=== PATIENT | female | born 1990 | race Two or more races ===

== ENCOUNTER 2018-03-28 19:41 | Emergency (ER) | payer SELFPAY ==
[~2018-03-28] VITALS: Ht 160 cm; Wt 68.0 kg
[2018-03-28] MEDS ORDERED: IV NORMAL SALINE 1000ML BAG 1,000 ML IV SCH (20:20)
--- NOTE | 2018-03-28 20:24 | PHYS DOC ---
Past Medical History Past Medical History: No Pertinent History Past Surgical History: No Surgical History Smoking: Cigarettes (The patient is a nonsmoker.) Alcohol Use: None Drug Use: None Adult General Chief Complaint Chief Complaint: ABDOMINAL PAIN HPI HPI Patient is a 27-year-old female who presents to the emergency room for evaluation. She states that for the past week, she has had some suprapubic discomfort, with some discomfort in her right flank area as well. She admits to urinary frequency, and some pressure with urination. She has had some urinary hesitancy as well. She had a small amount of vaginal bleeding about a week ago but none normal menstrual period. Her LMP was around February 14. She took a test about 2 weeks ago, which was negative. A bedside test in the emergency department is negative as well. She has not had any nausea, vomiting, or diarrhea, or vaginal discharge. She has not had any fevers or chills. There are no alleviating or exacerbating factors to her symptoms. Review of Systems Review of Systems Constitutional: Denies fever or chills [] Eyes: Denies change in visual acuity, redness, or eye pain [] HENT: Denies nasal congestion or sore throat [] Respiratory: Denies cough or shortness of breath [] Cardiovascular: The patient denies any shortness of breath, chest pain, palpitations, or orthopnea [] GI: No additional information not addressed in HPI [] : No additional information not addressed in HPI [] Musculoskeletal: Denies back pain or joint pain [] Integument: Denies rash or skin lesions [] Neurologic: Denies headache, focal weakness or sensory changes [] Endocrine: Denies polyuria or polydipsia [] All other systems were reviewed and found to be within normal limits, except as documented in this note. Current Medications Current Medications Current Medications Medications (Trade) Dose Ordered Sig/Kranthi Start Time Stop Time Status Last Admin Dose Admin Acetaminophen (Tylenol) 1,000 mg 1X ONCE 03/28/18 20:45 03/28/18 20:46 DC 03/28/18 21:10 1,000 MG Info (CONTRAST GIVEN -- Rx MONITORING) 1 each PRN DAILY PRN 03/28/18 21:30 03/30/18 21:29 Iohexol (Omnipaque 300 Mg/ml) 75 ml 1X ONCE 03/28/18 21:15 03/28/18 21:16 DC 03/28/18 21:15 75 ML Sodium Chloride 1,000 ml @ 1,000 mls/hr Q1H 03/28/18 20:20 03/28/18 21:19 DC 03/28/18 20:28 1,000 MLS/HR Allergies Allergies Allergies Coded Allergies Type Severity Reaction Last Updated Verified No Known Drug Allergies 03/28/18 No Physical Exam Physical Exam PHYSICAL EXAM: CONSTITUTIONAL: Well developed, well nourished HEAD: normocephalic, atraumatic EENT: PERRL, EOMI. Conjunctivae normal color, sclerae non-icteric; moist mucous membranes. NECK: Supple, non-tender; no meningismus. LUNGS: Lungs CTA, breathing even and unlabored. Normal air movement. HEART: Regular rate and rhythm, no murmur CHEST: No deformity; non-tender ABDOMEN: The abdomen is soft, there is mild tenderness to palpation in the suprapubic area, the remainder of the abdomen is soft and nontender, without rebound or guarding, normal bowel sounds are present, the right lower quadrant is nontender, no masses or bruits. EXTREM: Normal ROM; no deformity, no calf tenderness. Normal pulses palpable in all extremities. There is no pedal edema. SKIN: No rash; no diaphoresis NEURO: Alert; normal speech and cognition; CN's grossly intact; strength grossly intact without focal deficit. BACK: No CVA TTP. PELVIC EXAM: Normal external genitalia. There is no significant amount of vaginal discharge. The cervix appears normal. There is no significant cervical motion tenderness, there is mild diffuse suprapubic tenderness to palpation without focal tenderness or mass. Exam was performed in the presence of the patient's nurse, Zandra. Current Patient Data Vital Signs Vital Signs Date Time Temp Pulse Resp B/P (MAP) Pulse Ox O2 Delivery O2 Flow Rate FiO2 03/28/18 19:59 98.5 84 23 124/60 (81) 99 Room Air 98.5 Lab Values Laboratory Tests Test 03/28/18 19:58 03/28/18 20:00 03/28/18 20:05 Urine Collection Type Void Urine Color Yellow Urine Clarity Clear Urine pH 6.5 Urine Specific [place] 1.010 Urine Protein Negative mg/dL (NEG-TRACE) Urine Glucose (UA) Negative mg/dL (NEG) Urine Ketones (Stick) Negative mg/dL (NEG) Urine Blood Negative (NEG) Urine Nitrite Negative (NEG) Urine Bilirubin Negative (NEG) Urine Urobilinogen Dipstick 0.2 mg/dL (0.2 mg/dL) Urine Leukocyte Esterase Negative (NEG) Urine RBC 0 /HPF (0-2) Urine WBC 0 /HPF (0-4) Urine Squamous Epithelial Cells Few /LPF Urine Bacteria Few /HPF (0-FEW) POC Urine HCG, Qualitative Hcg negative (Negative) White Blood Count 9.4 x10^3/uL (4.0-11.0) Red Blood Count 4.20 x10^6/uL (3.50-5.40) Hemoglobin 13.1 g/dL (12.0-15.5) Hematocrit 37.9 % (36.0-47.0) Mean Corpuscular Volume 90 fL (79-100) Mean Corpuscular Hemoglobin 31 pg (25-35) Mean Corpuscular Hemoglobin Concent 35 g/dL (31-37) Red Cell Distribution Width 12.4 % (11.5-14.5) Platelet Count 285 x10^3/uL (140-400) Neutrophils (%) (Auto) 55 % (31-73) Lymphocytes (%) (Auto) 36 % (24-48) Monocytes (%) (Auto) 6 % (0-9) Eosinophils (%) (Auto) 3 % (0-3) Basophils (%) (Auto) 1 % (0-3) Neutrophils # (Auto) 5.2 x10^3uL (1.8-7.7) Lymphocytes # (Auto) 3.4 x10^3/uL (1.0-4.8) Monocytes # (Auto) 0.6 x10^3/uL (0.0-1.1) Eosinophils # (Auto) 0.2 x10^3/uL (0.0-0.7) Basophils # (Auto) 0.1 x10^3/uL (0.0-0.2) Sodium Level 138 mmol/L (136-145) Potassium Level 3.3 mmol/L (3.5-5.1) L Chloride Level 100 mmol/L (98-107) Carbon Dioxide Level 27 mmol/L (21-32) Anion Gap 11 (6-14) Blood Urea Nitrogen 12 mg/dL (7-20) Creatinine 0.7 mg/dL (0.6-1.0) Estimated GFR (Cockcroft-Gault) 99.6 BUN/Creatinine Ratio 17 (6-20) Glucose Level 92 mg/dL (70-99) Calcium Level 9.1 mg/dL (8.5-10.1) Total Bilirubin 0.2 mg/dL (0.2-1.0) Aspartate Amino Transferase (AST) 14 U/L (15-37) L Alanine Aminotransferase (ALT) 29 U/L (14-59) Alkaline Phosphatase 61 U/L (46-116) Total Protein 8.4 g/dL (6.4-8.2) H Albumin 3.7 g/dL (3.4-5.0) Albumin/Globulin Ratio 0.8 (1.0-1.7) L Lipase 113 U/L (73-393) Laboratory Tests 03/28/18 20:05 Laboratory Tests 03/28/18 20:05 Microbiology 03/28/18 Wet Prep - Final, Complete WET PREP Final YEAST NONE SEEN TRICHOMONAS NONE SEEN CLUE CELLS NONE SEEN EKG EKG [] Radiology/Procedures Radiology/Procedures PROCEDURE: CT ABD PELV W/ IV CONTRST ONLY PQRS Compliance Statement: One or more of the following individualized dose reduction techniques were utilized for this examination: 1. Automated exposure control 2. Adjustment of the mA and/or kV according to patient size 3. Use of iterative reconstruction technique CT ABD PELV W/ IV CONTRST ONLY Clinical Indication: low abd pain, Comparison: None. Technique: Helical CT imaging of the abdomen and pelvis is performed after 75 cc of Omnipaque 300 IV contrast. Oral contrast not given. Findings: There is minimal dependent atelectasis in the lower lobes. Cardiac size normal. There is moderate fatty infiltration of the liver. Focal fatty sparing along the gallbladder fossa. There is an enhancing or relatively hyperdense mass in the right hepatic lobe just lateral to the intrahepatic IVC. The mass measures approximately 3.6 x 3.1 cm. The spleen, gallbladder, pancreas, adrenal glands, abdominal aorta, and kidneys are normal. Stomach unremarkable. There is no dilated small bowel. No colon wall thickening. The appendix is normal. No abdominal adenopathy or free fluid. Urinary bladder is normal. Uterus and ovaries unremarkable. No pelvic free fluid. No acute bone abnormality. IMPRESSION: 1. No acute abdominal or pelvic abnormality. 2. Fatty infiltration of the liver. 3. There is a 3.6 cm enhancing or relatively hyperdense mass in the right hepatic lobe. Recommend outpatient MR abdomen with and without contrast for further evaluation.[] Course & Med Decision Making Course & Med Decision Making Pertinent Labs and Imaging studies reviewed. (See chart for details) [The patient's condition remains stable. I discussed test results with the patient, the need for outpatient imaging, per radiologist's recommendations, the need for DIPLOMATIC COURIER follow-up and return precautions.] Dragon Disclaimer Dragon Disclaimer This electronic medical record was generated, in whole or in part, using a voice recognition dictation system. Departure Departure Impression: Primary Impression: Abdominal pain Additional Impression: Pelvic pain in female Disposition: 01 HOME, SELF-CARE Condition: STABLE Referrals: NAHEED IBARRA Jr, MD Patient Instructions: Abdominal Pain, Pelvic Pain, Female Additional Instructions: the CT scan of the abdomen that was done today did demonstrate an abnormality on her liver that warrants further outpatient evaluation with MRI, to ensure there is no that this lesion is benign, and no further treatment is necessary. Please contact the primary care provider of your choice to schedule further outpatient follow-up. Scripts Diclofenac Sodium (DICLOFENAC SODIUM) 50 Mg Tablet.dr 1 TAB PO BID, #20 TAB 0 Refills Prov: NIKITA OBREGON MD 03/28/18 Problem Qualifiers NIKITA OBREGON MD Mar 28, 2018 20:24
[2018-03-28 20:29] LABS: BILIRUBIN,URINE NEGATIVE (NEG); CLARITY,URINE CLEAR; COLOR,URINE YELLOW; NITRITE,URINE NEGATIVE (NEG); PH,URINE 6.5; PROTEIN,URINE NEGATIVE (NEG-TRACE); UROBILINOGEN,URINE 0.2 mg/dL (0.2 mg/dL)
[2018-03-28 20:30] LABS: BASO # 0.1 x10^3/uL (0.0-0.2); BASO % 1 % (0-3); EOS # 0.2 x10^3/uL (0.0-0.7); EOS % 3 % (0-3); HEMATOCRIT 37.9 % (36.0-47.0); HEMOGLOBIN 13.1 g/dL (12.0-15.5); LYMPH # 3.4 x10^3/uL (1.0-4.8); LYMPH % 36 % (24-48); MEAN CORPUSCULAR HEMOGLOBIN 31 pg (25-35); MEAN CORPUSCULAR HGB CONC 35 g/dL (31-37); MEAN CORPUSCULAR VOLUME 90 fL (79-100); MONO # 0.6 x10^3/uL (0.0-1.1); MONO % 6 % (0-9); NEUT # 5.2 x10^3uL (1.8-7.7); NEUT % 55 % (31-73); PLATELET COUNT 285 x10^3/uL (140-400); RED CELL DISTRIBUTION WIDTH 12.4 % (11.5-14.5); WHITE BLOOD COUNT 9.4 x10^3/uL (4.0-11.0)
[2018-03-28 20:36] LABS: BACTERIA,URINE FEW /HPF (0-FEW); RBC,URINE 0 /HPF (0-2); SQUAMOUS EPITHELIAL CELL,UR FEW /LPF; WBC,URINE 0 /HPF (0-4)
[2018-03-28 20:41] LABS: CALCIUM 9.1 mg/dL (8.5-10.1); CREATININE 0.7 mg/dL (0.6-1.0); GFR 99.6; POTASSIUM 3.3 mmol/L (3.5-5.1)
[2018-03-28 20:45] LABS: ALBUMIN 3.7 g/dL (3.4-5.0); ALBUMIN/GLOBULIN RATIO 0.8 (1.0-1.7); TOTAL BILIRUBIN 0.2 mg/dL (0.2-1.0); TOTAL PROTEIN 8.4 g/dL (6.4-8.2)
[2018-03-28] MEDS ORDERED: ACETAMINOPHEN 500 MG TABLET PO ONE (20:45)
[2018-03-28] MEDS ORDERED: IOHEXOL 300 MG/ML 100ML VIAL. IV ONE (21:15)
[2018-03-28] MEDS ORDERED: CONTRAST GIVEN. MC PRN (21:30)
--- NOTE | 2018-03-28 22:09 | RAD ---
PQRS Compliance Statement: One or more of the following individualized dose reduction techniques were utilized for this examination: 1. Automated exposure control 2. Adjustment of the mA and/or kV according to patient size 3. Use of iterative reconstruction technique CT ABD PELV W/ IV CONTRST ONLY Clinical Indication: low abd pain, Comparison: None. Technique: Helical CT imaging of the abdomen and pelvis is performed after 75 cc of Omnipaque 300 IV contrast. Oral contrast not given. Findings: There is minimal dependent atelectasis in the lower lobes. Cardiac size normal. There is moderate fatty infiltration of the liver. Focal fatty sparing along the gallbladder fossa. There is an enhancing or relatively hyperdense mass in the right hepatic lobe just lateral to the intrahepatic IVC. The mass measures approximately 3.6 x 3.1 cm. The spleen, gallbladder, pancreas, adrenal glands, abdominal aorta, and kidneys are normal. Stomach unremarkable. There is no dilated small bowel. No colon wall thickening. The appendix is normal. No abdominal adenopathy or free fluid. Urinary bladder is normal. Uterus and ovaries unremarkable. No pelvic free fluid. No acute bone abnormality. IMPRESSION: 1. No acute abdominal or pelvic abnormality. 2. Fatty infiltration of the liver. 3. There is a 3.6 cm enhancing or relatively hyperdense mass in the right hepatic lobe. Recommend outpatient MR abdomen with and without contrast for further evaluation. Electronically signed by: Ihsan Graysno MD (03/28/2018 10:05 PM) [facility]
[2018-03-28] MEDS ORDERED: DICL50TA4 PO (22:22)
[2018-03-28 22:25] VITALS: BP 119/57
[2018-04-01 13:19] LABS: GC PROBE Negative (Negative)
== END 2018-03-28 22:45 | disposition home or self-care (01) ==
LOC: ER 19:41
DX: R10.84 Generalized abdominal pain (principal); R10.2 Pelvic and perineal pain; N93.9 Abnormal uterine and vaginal bleeding, unspecified; R35.0 Frequency of micturition; K76.0 Fatty (change of) liver, not elsewhere classified
CPT/HCPCS: 36415; 74177; 80053; 81001; 81025; 83690; 85025; 87491; 87591; 99284; J7030; Q0111; Q9967; 96360

== ENCOUNTER 2020-10-11 16:34 | Emergency (ER) | payer SELFPAY ==
[~2020-10-11] VITALS: Ht 160 cm; Wt 90.9 kg
[~2020-10-11 16:34] MED LIST: DICL50TA4 PO
[2020-10-11 18:42] LABS: BILIRUBIN,URINE NEGATIVE (NEG); CLARITY,URINE CLEAR; COLOR,URINE YELLOW; NITRITE,URINE NEGATIVE (NEG); PROTEIN,URINE NEGATIVE (NEG-TRACE); UROBILINOGEN,URINE 0.2 mg/dL (0.2 mg/dL)
[2020-10-11 18:45] LABS: U PREG PATIENT NEGATIVE (NEG)
--- NOTE | 2020-10-11 18:45 | PHYS DOC ---
Past Medical History Past Medical History: No Pertinent History Past Surgical History: No Surgical History Smoking Status: Never Smoker Alcohol Use: None Drug Use: None General Adult EDM: Chief Complaint: PELVIC PAIN HPI: HPI: Patient is a 30 year old female with no past medical or surgical history presents with a chief complaint of abdominal pain. Patient states abdominal pain has been ongoing for 2 days. Patient's pain is been constant since onset. Patient's pain is primarily located periumbilical and radiates diffusely to all quadrants. Patient had nausea and vomiting this a.m. She denies any associated urinary complaints and or diarrhea vaginal discharge or vaginal bleeding.. Patient has an IUD in place. Review of Systems: Review of Systems: Review of systems: Constitutional symptoms- No fever, no chills. Eyes- No Discharge, No Visual Loss Respiratory symptoms- No shortness of breath, No wheezing, No Dyspnea on Exertion Cardiovascular Systems; No chest pain, No Palpitations, No syncope Gastrointestinal symptoms: Positive abdominal pain, Positive nausea, Positive vomiting no diarrhea. Genitourinary symptoms: No dysuria. Musculoskeletal symptoms: No back pain No extremity pain. NEUROLOGICAL Symptoms: No headache, no generalized weakness; No focal Weakness Skin: No rash. Heart Score: C/O Chest Pain: N/A Risk Factors: Risk Factors: DM, Current or recent (<one month) smoker, HTN, HLP, family history of CAD, obesity. Risk Scores: Score 0 - 3: 2.5% MACE over next 6 weeks - Discharge Home Score 4 - 6: 20.3% MACE over next 6 weeks - Admit for Clinical Observation Score 7 - 10: 72.7% MACE over next 6 weeks - Early Invasive Strategies Current Medications: Current Medications Medications (Trade) Dose Ordered Sig/[facility] Start Time Stop Time Status Last Admin Dose Admin Tramadol HCl (Ultram) 50 mg 1X ONCE 10/11/20 18:45 10/11/20 18:46 UNV Allergies: Allergies: Allergies Coded Allergies Type Severity Reaction Last Updated Verified No Known Drug Allergies 03/28/18 No Physical Exam: PE: General: alert, no acute distress. Skin: warm, dry and intact. HENT: bilateral external ears normal, oropharynx moist, nose normal. Head:: Normocephalic, atraumatic. Neck: Trachea midline. Eyes: EOMI, Normal conjunctiva, No drainage CARDIOVASCULAR: Regular rate and rhythm RESPIRATORY: No respiratory distress Back: Full range of motion. Skin: Warm, dry, no erythema, no rash. MUSCULOSKELETAL: Full range of motion of bilateral upper and lower extremities. GASTROINTESTINAL: Abdomen soft without rebound or guarding. NEUROLOGICAL: Alert and noted to person, place and time. No neurological deficits observed Psychiatric: Cooperative. Normal judgment Current Patient Data: Labs: Laboratory Tests Test 10/11/20 18:32 POC Urine HCG, Qualitative Hcg negative (Negative) EKG: EKG: [] Radiology/Procedures: Radiology/Procedures: [] Impression: PQRS Compliance Statement: One or more of the following individualized dose reduction techniques were utilized for this examination: 1. Automated exposure control 2. Adjustment of the mA and/or kV according to patient size 3. Use of iterative reconstruction technique CT abdomen/pelvis with contrast 10/11/2020 8:31 PM INDICATION: Abdominal pain COMPARISON: CT abdomen/pelvis 03/28/2018 TECHNIQUE: Multiple axial CT images of the abdomen and pelvis were obtained after the intravenous administration of 75 mL Isovue-370. Coronal and sagittal reformats are provided. FINDINGS: Lung bases are clear. Heart size within normal limits. Right hepatic lobe measures 22.3 cm along the right mid clavicular line. Diffuse hypoattenuation the hepatic parenchyma suggestive of hepatic steatosis. Focal fatty sparing identified along the gallbladder fossa. There is a rounded area of hyperattenuation identified within the inferior right hepatic lobe measuring 8 mm (series 3, image 31). Spleen, pancreas, adrenal glands and gallbladder are normal in appearance. The abdominal aorta is normal in course and caliber. There are no pathologically enlarged lymph nodes in the abdomen and pelvis. There is no abdominal free fluid. There is no free intraperitoneal air. Small and large bowel are normal in caliber. There is no evidence for bowel obstruction. There are no pericolonic inflammatory changes. A normal, nondilated appendix is visualized without adjacent inflammatory changes. The kidneys enhance symme trically. There is no suspicious renal mass. There is no hydronephrosis. There are no suspected calculi within the kidneys, ureters or urinary bladder. Uterus is normal in appearance. IUD is present. Limited evaluation of configuration by CT. Urinary bladder within normal limits in degree of distention. Follicular changes are identified within the adnexa. No suspicious osseous abnormality is identified. IMPRESSION: Hepatomegaly with diffuse hepatic steatosis. Focal high attenuation lesion in inferior right hepatic lobe measures 8 mm (series 3, image 31). This finding is indeterminate due to the background of hepatic steatosis. Consideration may be given for focal fatty sparing. This finding appears present on prior examination from 03/28/2018 and presumed benign. Cyst, hemangioma or focal fatty sparing could have this appearance. Electronically signed by: Yina Adams MD (10/11/2020 9:00 PM) [facility] Course & Med Decision Making: Course & Med Decision Making Pertinent Labs and Imaging studies reviewed. (See chart for details) [] Patient was evaluated for chief complaint. Work-up consisted of laboratory analysis radiologic imaging. Results reviewed and discussed with patient. Patient labs within normal limits CT imaging no acute abnormalities. Dragon Disclaimer: Dragon Disclaimer: This electronic medical record was generated, in whole or in part, using a voice recognition dictation system. Departure Departure Impression: Primary Impression: Abdominal pain Disposition: HOME / SELF CARE / HOMELESS Condition: STABLE Referrals: NO PCP (PCP) Patient Instructions: Abdominal Pain Scripts Tramadol Hcl (ULTRAM) 50 Mg Tablet 1 TAB PO PRN Q6HRS PRN for pain MDD 4 Tablet(s) for 7 Days, #28 TAB 0 Refills Prov: PHAM ALCARAZ DO 10/11/20 PHAM ALCARAZ DO Oct 11, 2020 18:44
[2020-10-11 18:49] LABS: BACTERIA,URINE FEW /HPF (0-FEW); RBC,URINE 0 /HPF (0-2); WBC,URINE 0 /HPF (0-4)
[2020-10-11] MEDS ORDERED: IOHEXOL 300 MG/ML 100ML VIAL. IV ONE (19:00)
[2020-10-11] MEDS ORDERED: traMADol 50 MG TABLET PO ONE (19:15)
[2020-10-11] MEDS ORDERED: KETOROLAC 30 MG/ML VIAL. IVP ONE (19:45)
[2020-10-11 20:08] LABS: BASO % 0 % (0-3); EOS # 0.2 x10^3/uL (0.0-0.7); EOS % 3 % (0-3); HEMATOCRIT 39.5 % (36.0-47.0); HEMOGLOBIN 13.3 g/dL (12.0-15.5); LYMPH # 3.8 x10^3/uL (1.0-4.8); LYMPH % 43 % (24-48); MEAN CORPUSCULAR HEMOGLOBIN 31 pg (25-35); MEAN CORPUSCULAR HGB CONC 34 g/dL (31-37); MEAN CORPUSCULAR VOLUME 90 fL (79-100); MONO # 0.4 x10^3/uL (0.0-1.1); MONO % 4 % (0-9); NEUT # 4.4 x10^3/uL (1.8-7.7); NEUT % 50 % (31-73); PLATELET COUNT 267 x10^3/uL (140-400); RED BLOOD COUNT 4.38 x10^6/uL (3.50-5.40); RED CELL DISTRIBUTION WIDTH 13.2 % (11.5-14.5); WHITE BLOOD COUNT 8.7 x10^3/uL (4.0-11.0)
[2020-10-11 20:22] LABS: CALCIUM 8.7 mg/dL (8.5-10.1); CREATININE 0.6 mg/dL (0.6-1.0); GFR 116.6
[2020-10-11 20:28] LABS: TOTAL BILIRUBIN 0.3 mg/dL (0.2-1.0)
--- NOTE | 2020-10-11 21:03 | RAD ---
PQRS Compliance Statement: One or more of the following individualized dose reduction techniques were utilized for this examinat ion: 1. Automated exposure control 2. Adjustment of the mA and/or kV according to patient size 3. Use of iterative reconstruction technique CT abdomen/pelvis with contrast 10/11/2020 8:31 PM INDICATION: Abdominal pain COMPARISON: CT abdomen/pelvis 03/28/2018 TECHNIQUE: Multiple axial CT images of the abdomen and pelvis were obtained after the intravenous adm inistration of 75 mL Isovue-370. Coronal and sagittal reformats are provided. FINDINGS: Lung bases are clear. Heart size within normal limits. Right hepatic lobe measures 22.3 cm along the right mid clavicular line. Diffuse hypoattenuation the hepatic parenchyma suggestive of hepatic steat osis. Focal fatty sparing identified along the gallbladder fossa. There is a rounded area of hyperatt enuation identified within the inferior right hepatic lobe measuring 8 mm (series 3, image 31). Splee n, pancreas, adrenal glands and gallbladder are normal in appearance. The abdominal aorta is normal i n course and caliber. There are no pathologically enlarged lymph nodes in the abdomen and pelvis. The re is no abdominal free fluid. There is no free intraperitoneal air. Small and large bowel are normal in caliber. There is no evidence for bowel obstruction. There are no pericolonic inflammatory change s. A normal, nondilated appendix is visualized without adjacent inflammatory changes. The kidneys enh ance symmetrically. There is no suspicious renal mass. There is no hydronephrosis. There are no suspe cted calculi within the kidneys, ureters or urinary bladder. Uterus is normal in appearance. IUD is p resent. Limited evaluation of configuration by CT. Urinary bladder within normal limits in degree of distention. Follicular changes are identified within the adnexa. No suspicious osseous abnormality is identified. IMPRESSION: Hepatomegaly with diffuse hepatic steatosis. Focal high attenuation lesion in inferior right hepatic lobe measures 8 mm (series 3, image 31). This finding is indeterminate due to the background of hepatic steatosis. Consideration may be given for focal fatty sparing. This finding appears present on prior examination from 03/28/2018 and presumed steve ign. Cyst, hemangioma or focal fatty sparing could have this appearance. Electronically signed by: Yina Adams MD (10/11/2020 9:00 PM) [facility]
[2020-10-11] MEDS ORDERED: TRAM-48 PO ×2 (21:09→21:10)
[2020-10-11 21:22] VITALS: BP 119/56
== END 2020-10-11 21:45 | disposition home or self-care (01) ==
LOC: ER 16:34
DX: R10.33 Periumbilical pain (principal); R11.2 Nausea with vomiting, unspecified
CPT/HCPCS: 36415; 74177; 80053; 81001; 81025; 83690; 85025; 96374; 99285; J1885; Q9967

== ENCOUNTER 2021-04-10 04:04 | Emergency (ER) | payer SELFPAY ==
[~2021-04-10] VITALS: Ht 152.4 cm; Wt 95.7 kg
[~2021-04-10 04:04] MED LIST changes: +TRAM-48 PO
[2021-04-10 04:59] LABS: BILIRUBIN,URINE NEGATIVE (NEG); CLARITY,URINE CLEAR; COLOR,URINE YELLOW; NITRITE,URINE NEGATIVE (NEG); PROTEIN,URINE 30 mg/dL (NEG-TRACE); UROBILINOGEN,URINE 0.2 mg/dL (0.2 mg/dL)
[2021-04-10 05:08] LABS: BACTERIA,URINE MODERATE /HPF (0-FEW); RBC,URINE 0 /HPF (0-2)
[2021-04-10] MEDS ORDERED: SULF1TAB24 PO (05:16)
--- NOTE | 2021-04-10 05:16 | PHYS DOC ---
Past Medical History Past Medical History: No Pertinent History Additional Past Medical Histor: FATTY LIVER Past Surgical History: Smoking Status: Never Smoker Alcohol Use: None Drug Use: None General Adult EDM: Chief Complaint: BACK PAIN - NO INJURY HPI: HPI: Patient is a 30 year old female who presents with 1 week of dysuria, suprapubic discomfort, and low back discomfort. No fevers, chills, nausea, vomiting. States that she is concerned she may be . States her LMP was 02/04/2021. States on March 09 she had a positive home test, but earlier this week had a negative test at the [facility]. No changes in bowel movements. No vaginal bleeding or discharge. Is in a monogamous relationship. Review of Systems: Review of Systems: Constitutional: Denies fever or chills. [] Eyes: Denies change in visual acuity. [] HENT: Denies nasal congestion or sore throat. [] Respiratory: Denies cough or shortness of breath. [] Cardiovascular: Denies chest pain or edema. [] GI: Denies abdominal pain, nausea, vomiting, bloody stools or diarrhea. [] : Reports dysuria, suprapubic discomfort, low back discomfort Musculoskeletal: Denies back pain or joint pain. [] Integument: Denies rash. [] Neurologic: Denies headache, focal weakness or sensory changes. [] Endocrine: Denies polyuria or polydipsia. [] Lymphatic: Denies swollen glands. [] Psychiatric: Denies depression or anxiety. [] Heart Score: C/O Chest Pain: No Allergies: Allergies: Allergies Coded Allergies Type Severity Reaction Last Updated Verified No Known Drug Allergies 03/28/18 No Physical Exam: PE: Constitutional: Well developed, well nourished, no acute distress, non-toxic appearance. [] HENT: Normocephalic, atraumatic[] Cardiovascular:Heart rate regular rhythm, no murmur [] Lungs & Thorax: Bilateral breath sounds clear to auscultation [] Abdomen: Obese abdomen. Soft, nontender. No masses. Skin: Warm, dry, no erythema, no rash. [] Back: No tenderness, no CVA tenderness. [] Extremities: No tenderness, no cyanosis, no clubbing, ROM intact, no edema. [] Neurologic: Alert and oriented X 3, normal motor function, normal sensory function, no focal deficits noted. [] Psychologic: Affect normal, judgement normal, mood normal. [] Current Patient Data: Labs: Laboratory Tests Test 04/10/21 04:35 04/10/21 04:43 Urine Collection Type Unknown Urine Color Yellow Urine Clarity Clear Urine pH 6.0 (<5.0-8.0) Urine Specific [place] 1.010 (1.000-1.030) Urine Protein 30 mg/dL (NEG-TRACE) Urine Glucose (UA) Negative mg/dL (NEG) Urine Ketones (Stick) Negative mg/dL (NEG) Urine Blood Trace (NEG) Urine Nitrite Negative (NEG) Urine Bilirubin Negative (NEG) Urine Urobilinogen Dipstick 0.2 mg/dL (0.2 mg/dL) Urine Leukocyte Esterase Small (NEG) Urine RBC 0 /HPF (0-2) Urine WBC 5-10 /HPF (0-4) Urine Squamous Epithelial Cells Many /LPF Urine Bacteria Moderate /HPF (0-FEW) Urine Mucus Slight /LPF POC Urine HCG, Qualitative Hcg negative (Negative) Vital Signs: Vital Signs Date Time Temp Pulse Resp B/P (MAP) Pulse Ox O2 Delivery O2 Flow Rate FiO2 04/10/21 04:55 98.0 82 18 118/61 (80) 98 Room Air 98.0 EKG: EKG: [] Radiology/Procedures: Radiology/Procedures: [] Course & Med Decision Making: Course & Med Decision Making Pertinent Labs and Imaging studies reviewed. (See chart for details) Patient a 30-year-old female who presents with dysuria, suprapubic discomfort, low back discomfort. On arrival is afebrile, with normal vital signs. No evidence of sepsis. She was concerned she may be , but urine test is negative here. UA is consistent with urinary tract infection. Will be sent for culture. Will place on p.o. Bactrim. Wojciech Disclaimer: Wojciech Disclaimer: This electronic medical record was generated, in whole or in part, using a voice recognition dictation system. Departure Departure Impression: Primary Impression: Urinary tract infection Disposition: HOME / SELF CARE / HOMELESS Condition: STABLE Referrals: NO PCP (PCP) Patient Instructions: Urinary Tract Infection Scripts Sulfamethoxazole/Trimethoprim (BACTRIM DS TABLET) 1 Each Tablet 1 TAB PO BID for infection for 7 Days, #14 TAB 0 Refills Prov: CHALO CALIXTO MD 04/10/21 CHALO CALIXTO MD Apr 10, 2021 05:16
[2021-04-10 05:54] VITALS: BP 116/62
== END 2021-04-10 05:48 | disposition home or self-care (01) ==
LOC: ER 04:04
DX: N39.0 Urinary tract infection, site not specified (principal)
CPT/HCPCS: 81001; 81025; 87086; 99283